=== PATIENT | female | born 1950 | race Caucasian/White ===

== ENCOUNTER → 2017-09-22 | Outpatient (CLI) | payer MEDICARE ==
--- NOTE | 2017-09-22 14:38 | CARDIOVASCULAR REPORT ---
"Cerebrovascular Exam Indications: 780.4 Dizziness vertigo IMPRESSIONS 1. The bilateral vertebral arteries are patent with normal antegrade flow. 2. Study suggests less than 20% stenosis involving the right internal carotid artery and the left internal carotid artery. History: Risk factors: Current tobacco use. Hypertension. Hyperlipidemia. Carotid duplex study. Complete study and Doppler flow study including spectral analysis, color and capone scale imaging. Height: Height: 160cm. Height: 63in. Weight: Weight: 89.8kg. Weight: 197.6lb. Body mass index: BMI: 35.1kg/m^2. Body surface area: BSA: 2.04m^2. Location: Vascular laboratory. Patient status: Outpatient. Tables: Arterial flow: + +--------+--------+ |Location |V sys |V ed | + +--------+--------+ |Right CCA - proximal|77.8cm/s|16.5cm/s| + +--------+--------+ |Right CCA - distal |58.1cm/s|16.5cm/s| + +--------+--------+ |Right ECA |95.9cm/s|--------| + +--------+--------+ |Right ICA - proximal|80.1cm/s|23.6cm/s| + +--------+--------+ |Right ICA - mid |84.1cm/s|21.2cm/s| + +--------+--------+ |Right ICA - distal |80.9cm/s|17.3cm/s| + +--------+--------+ |Right vertebral |55.8cm/s|--------| + +--------+--------+ |Left CCA - proximal |82.5cm/s|14.1cm/s| + +--------+--------+ |Left CCA - distal |60.5cm/s|13.4cm/s| + +--------+--------+ |Left ECA |95.9cm/s|--------| + +--------+--------+ |Left ICA - proximal |62.1cm/s|20.4cm/s| + +--------+--------+ |Left ICA - mid |95.1cm/s|25.1cm/s| + +--------+--------+ |Left ICA - distal |107cm/s |25.9cm/s| + +--------+--------+ |Left vertebral |72.3cm/s|--------| + +--------+--------+ Velocity ratios: + + + + + + | |Right, V sys|Right, V ed|Left, V sys|Left, V ed| + + + + + + |Max ICA/dist CCA|1.45 |1.43 |1.77 |1.93 | + + + + + + (Report amended ) Electronically signed by: Miki Phelan [id number]"
== END ==
LOC: RT 14:10
DX: R42 Dizziness and giddiness (principal)